=== PATIENT | female | born 1975 | race Caucasian/White ===

== ENCOUNTER 2022-04-18 16:45 | Observation (INO) | payer OTHER ==
[2022-04-18 17:34] LABS: Absolute Neutrophil Ct (ANC) 5.55 x10^3/uL (1.4-6.9); Basophil (Absolute #) 0.08 x10^3/uL (0-0.4); Eosinophil % 1.8 % (0.00-5.0); Eosinophil (Absolute #) 0.18 x10^3/uL (0-0.5); Hematocrit 38.7 % (35-47); Hemoglobin 12.5 g/dL (12.0-16.0); Lymphocytes % 34.6 % (24.0-44.0); Mean Cell Volume 90.6 fL (78-100); Mean Corpuscular Hemoglobin 29.3 pg (26-32); Mean Corpuscular Hgb Concent. 32.3 g/dL (32-36); Mean Platelet Volume 10.5 fL (7.5-11.0); Monocyte (Absolute #) 0.58 x10^3/uL (0.0-1.3); Monocytes % 5.9 % (0.0-12.0); Neutrophil % 56.5 % (36.0-66.0); Platelet Count 315 x10^3/uL (150-450); Red Blood Count 4.27 x10^6/uL (4.1-5.4); Red Cell Distribution Width 14.2 % (11.5-14.0); White Blood Count 9.8 x10^3/uL (4.0-10.5)
--- NOTE | 2022-04-18 17:44 | ERPHSYRPT ---
- History of Present Illness Time Seen by Provider: 04/18/22 16:59 Source: patient Exam Limitations: no limitations Patient Subjective Stated Complaint: [place]oke symptoms Triage Nursing Assessment: Patient ambulated back to ED and transferred self to bed. Patient A+O 3. Patient's skin pink, warm and dry. Patient complains of waking up at 0400 this am and around 0500 her right arm became flacid and she was unable to move it for 2 min. Patient states then she was fine. Later around 1200 she stated she was standing talking to someone when she started feeling weird and her right arm became flacid again and her speach was slurred that lasted 5 min. Patient states she has been fine since. Patient currently denies pain or discomfort. Physician History: 46 years old female with history of hypertension, hyperlipidemia, tobacco abuse presented in the ER with chief complaint of intermittent weakness right upper extremity. Patient reports she woke up around 4 AM today, was in usual state of health and around 5 PM she started to feel that she has weakness in right upper extremity, could not hold her cell phone and it was keep falling, lasted for few minutes and improved. This happened again around noon time in the right upper extremity lasting for few minutes and at that time she also had slurring of speech. She does not have any focal neurodeficit currently. Denies any chest pain palpitations or shortness of breath. No history of stroke/TIA before. Currently she is asymptomatic. Time of Onset/Last Time Seen Normal: 0400 Timing/Duration: today, improved Severity: moderate Deficits: no difficulties Baseline/Normal Cognition: alert oriented x 3 Current Cognition: alert oriented x 3 Baseline Gait: walks w/o assistance Associated Symptoms: weakness, slurred speech Allergies/Adverse Reactions: ibuprofen Allergy (Verified 04/18/22 17:00) Home Medications: Amitriptyline HCl 25 mg [Amitriptyline 25 mg Tablet] 1 tab PO HS 04/18/22 [History] Atorvastatin Calcium 1 tab PO HS 04/18/22 [History] Metformin HCl 500 mg [Glucophage 500 MG] 1 tab PO DAILY 04/18/22 [History] Omeprazole 1 tab PO DAILY 04/18/22 [History] Solifenacin Succinate 1 tab PO DAILY 04/18/22 [History] Hx Influenza Vaccination/Date Given: No Hx Pneumococcal Vaccination/Date Given: No Immunizations Up to Date: Yes Travel Risk - International Travel Have you traveled outside of the country in past 3 weeks: No - Coronavirus Screening Are you exhibiting any of the following symptoms?: No Close contact with a COVID-19 positive Pt in past 14-21 Days: No - Vaccine Status Have you recieved a Covid-19 vaccination: No - Review of Systems Constitutional: No Symptoms Eyes: No Symptoms Ears, Nose, & Throat: No Symptoms Respiratory: No Symptoms Cardiac: No Symptoms Abdominal/Gastrointestinal: No Symptoms Genitourinary Symptoms: No Symptoms Musculoskeletal: No Symptoms Skin: No Symptoms Neurological: No Symptoms Psychological: No Symptoms Endocrine: No Symptoms Hematologic/Lymphatic: No Symptoms Immunological/Allergic: No Symptoms - Past Medical History Pertinent Past Medical History: Yes Neurological History: Other ENT History: No Pertinent History Cardiac History: High Cholesterol, Hypertension Respiratory History: No Pertinent History Endocrine Medical History: No Pertinent History Musculoskeletal History: No Pertinent History GI Medical History: No Pertinent History History: No Pertinent History Psycho-Social History: No Pertinent History Female Reproductive Disorders: No Pertinent History Other Medical History: sleep apnea - Past Surgical History Past Surgical History: Yes Neuro Surgical History: No Pertinent History Cardiac: No Pertinent History Respiratory: No Pertinent History Gastrointestinal: Cholecystectomy Genitourinary: No Pertinent History Musculoskeletal: No Pertinent History Female Surgical History: No Pertinent History - Social History Smoking Status: Current every day smoker How long have you smoked: years Exposure to second hand smoke: No Drug Use: none Patient Lives Alone: No - Female History Hx Last Menstrual Period: currently Hx Now: (unkn) - Nursing Vital Signs Nursing Vital Signs: Initial Vital Signs Temperature 96.2 F 04/18/22 17:03 Pulse Rate 88 04/18/22 17:03 Respiratory Rate 18 04/18/22 17:03 Blood Pressure 176/86 04/18/22 17:03 O2 Sat by Pulse Oximetry 98 04/18/22 17:03 Pain Scale Pain Intensity 0 - Uday Coma Scale Best Eye Response ([place]): (4) open spontaneously Best Verbal Response (Uday): (5) oriented Best Motor Response (Uday): (6) obeys commands Uday Total: 15 - Physical Exam General Appearance: no apparent distress, alert Eye Exam: bilateral eye: normal inspection, PERRL, EOMI Ears, Nose, Throat Exam: normal ENT inspection, TMs normal, pharynx normal, moist mucous membranes Neck Exam: normal inspection, non-tender, supple, full range of motion Respiratory: normal breath sounds, lungs clear Cardiovascular: regular rate/rhythm, normal heart sounds Gastrointestinal: soft, normal bowel sounds, No tenderness Back Exam: normal inspection, normal range of motion Extremity Exam: normal inspection, normal range of motion Mental Status: alert, oriented x 3, 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 Exam: normal hearing, normal speech, PERRL Coordination/Gait: normal finger to nose, normal gait, normal cerebellar function Motor/Sensory: no motor deficit, no sensory deficit, no pronator drift, negative Babinski's sign DTR: bicep (R): 2+, bicep (L): 2+, knee (R): 2+, knee (L): 2+ Skin Exam: normal color SpO2 Interpretation: normal SpO2: 98 O2 Delivery: Room Air - Course EKG Interpreted by Me: RATE ([id number]), Sinus Rhythm, NORMAL AXIS, NORMAL INTERVALS, Non-specific ST Changes Ordered Tests: Active Orders 24 hr Category Date Time Status Educational Administrator STAT Care 04/18/22 17:12 Active EKG-ER Only STAT Care 04/18/22 17:11 Active IV Insertion STAT Care 04/18/22 17:11 Active NPO (ED) STAT Care 04/18/22 17:11 Active POCT Glucose Check STAT Care 04/18/22 17:11 Active Tele-Health Consult ROUTINE Cons 04/18/22 18:50 Active HEAD WITHOUT CONTRAST [CT] Stat Exams 04/18/22 17:11 Taken CBC W DIFF Stat Lab 04/18/22 17:19 Completed CMP Stat Lab 04/18/22 17:19 Completed CULTURE,URINE Stat Lab 04/18/22 17:19 Received MAG [MAGNESIUM] Stat Lab 04/18/22 17:19 Completed POCT GLUCOSE Stat Lab 04/18/22 17:17 Completed PROTIME WITH INR Stat Lab 04/18/22 17:19 Completed PTT Stat Lab 04/18/22 17:19 Completed TROPONIN Q3H Lab 04/18/22 17:15 Completed TROPONIN Q3H Lab 04/18/22 20:15 Ordered TROPONIN Q3H Lab 04/18/22 23:15 Ordered TROPONIN Q3H Lab 04/19/22 02:15 Ordered UA W/RFX CULTURE Stat Lab 04/18/22 17:19 Completed Transfer Order Routine Transfer 04/18/22 Ordered Medication Summary Discontinued Medications Generic Name Dose Route Start Last Admin Trade Name Vin PRN Reason Stop Dose Admin Aspirin 324 mg 04/18/22 19:02 Aspirin 81 Mg Tab.Chew PO 04/18/22 19:03 STAT ONE Lab/Rad Data: Laboratory Result Diagrams 04/18/22 17:19 04/18/22 17:19 Laboratory Results 04/18/22 04/18/22 04/18/22 Range/Units 17:19 17:19 17:19 WBC (4.0-10.5) x10^3/uL RBC (4.1-5.4) x10^6/uL Hgb (12.0-16.0) g/dL Hct (35-47) % MCV (78-100) fL MCH (26-32) pg MCHC (32-36) g/dL RDW (11.5-14.0) % Plt Count (150-450) x10^3/uL MPV (7.5-11.0) fL Gran % (36.0-66.0) % Immature Gran % (Auto) (0.00-0.4) % Nucleat RBC Rel Count (0.00-0.1) % Eos # (Auto) (0-0.5) x10^3/uL Immature Gran # (Auto) (0.00-0.03) x10^3u/L Absolute Lymphs (auto) (1.0-4.6) x10^3/uL Absolute Monos (auto) (0.0-1.3) x10^3/uL Absolute Nucleated RBC (0.00-0.01) x10^3u/L Lymphocytes % (24.0-44.0) % Monocytes % (0.0-12.0) % Eosinophils % (0.00-5.0) % Basophils % (0.0-0.4) % Absolute Granulocytes (1.4-6.9) x10^3/uL Basophils # (0-0.4) x10^3/uL PT 10.1 (9.4-12.5) SECONDS INR 0.95 (0.8-3.0) APTT 26.1 (25.1-36.5) SECONDS Sodium (137-145) mmol/L Potassium (3.5-5.1) mmol/L Chloride (98-107) mmol/L Carbon Dioxide (22-30) mmol/L Anion Gap (5-15) MEQ/L BUN (7-17) mg/dL Creatinine (0.52-1.04) mg/dL Estimated GFR ML/MIN Glucose (74-106) mg/dL POC Glucometer (74 to 106) mg/dL Calcium (8.4-10.2) mg/dL Magnesium 1.8 (1.6-2.3) mg/dL Total Bilirubin (0.2-1.3) mg/dL AST (14-36) U/L ALT (0-35) U/L Alkaline Phosphatase (38-126) U/L Troponin I (0.000-0.034) ng/mL Serum Total Protein (6.3-8.2) g/dL Albumin (3.5-5.0) g/dL Urinalys Dipstick Clnc MAIN LAB Urine Color PINK (YELLOW) Urine Appearance CLOUDY A (CLEAR) Urine pH 6.0 (5-6) Ur Specific [place] 1.025 (1.005-1.025) POC Urine Protein Conf TRACE A (Negative) Urine Ketones NEGATIVE (NEGATIVE) Urine Nitrite NEGATIVE (NEGATIVE) Urine Bilirubin NEGATIVE (NEGATIVE) Urine Urobilinogen 0.2 (0-1) mg/dL Urine Leukocytes TRACE A (NEGATIVE) Urine WBC (Auto) 16-25 A (0-5) /HPF Urine RBC (Auto) >101 A (0-2) /HPF U Epithel Cells (Auto) RARE (FEW) /HPF Urine Bacteria (Auto) RARE (NEGATIVE) /HPF Urine RBC LARGE A (0-5) [place]/ul Urine Mucus (Auto) SLIGHT A (NEGATIVE) /HPF Ur Culture Indicated? YES Urine Glucose NEGATIVE (NEGATIVE) mg/dL Influenza Type A Ag (NEGATIVE) Influenza Type B Ag (NEGATIVE) RSV (PCR) (Negative) SARS-CoV-2 (PCR) (NEGATIVE) 04/18/22 04/18/22 04/18/22 Range/Units 17:19 17:19 17:17 WBC 9.8 (4.0-10.5) x10^3/uL RBC 4.27 (4.1-5.4) x10^6/uL Hgb 12.5 (12.0-16.0) g/dL Hct 38.7 (35-47) % MCV 90.6 (78-100) fL MCH 29.3 (26-32) pg MCHC 32.3 (32-36) g/dL RDW 14.2 H (11.5-14.0) % Plt Count 315 (150-450) x10^3/uL MPV 10.5 (7.5-11.0) fL Gran % 56.5 (36.0-66.0) % Immature Gran % (Auto) 0.4 (0.00-0.4) % Nucleat RBC Rel Count 0.0 (0.00-0.1) % Eos # (Auto) 0.18 (0-0.5) x10^3/uL Immature Gran # (Auto) 0.04 H (0.00-0.03) x10^3u/L Absolute Lymphs (auto) 3.40 (1.0-4.6) x10^3/uL Absolute Monos (auto) 0.58 (0.0-1.3) x10^3/uL Absolute Nucleated RBC 0.00 (0.00-0.01) x10^3u/L Lymphocytes % 34.6 (24.0-44.0) % Monocytes % 5.9 (0.0-12.0) % Eosinophils % 1.8 (0.00-5.0) % Basophils % 0.8 (0.0-0.4) % Absolute Granulocytes 5.55 (1.4-6.9) x10^3/uL Basophils # 0.08 (0-0.4) x10^3/uL PT (9.4-12.5) SECONDS INR (0.8-3.0) APTT (25.1-36.5) SECONDS Sodium 136 L (137-145) mmol/L Potassium 3.5 (3.5-5.1) mmol/L Chloride 102 (98-107) mmol/L Carbon Dioxide 26 (22-30) mmol/L Anion Gap 11.0 (5-15) MEQ/L BUN 11 (7-17) mg/dL Creatinine 0.70 (0.52-1.04) mg/dL Estimated GFR > 60.0 ML/MIN Glucose 95 (74-106) mg/dL POC Glucometer 98 (74 to 106) mg/dL Calcium 8.9 (8.4-10.2) mg/dL Magnesium (1.6-2.3) mg/dL Total Bilirubin 0.40 (0.2-1.3) mg/dL AST 25 (14-36) U/L ALT 28 (0-35) U/L Alkaline Phosphatase 94 (38-126) U/L Troponin I (0.000-0.034) ng/mL Serum Total Protein 7.4 (6.3-8.2) g/dL Albumin 4.3 (3.5-5.0) g/dL Urinalys Dipstick Clnc Urine Color (YELLOW) Urine Appearance (CLEAR) Urine pH (5-6) Ur Specific [place] (1.005-1.025) POC Urine Protein Conf (Negative) Urine Ketones (NEGATIVE) Urine Nitrite (NEGATIVE) Urine Bilirubin (NEGATIVE) Urine Urobilinogen (0-1) mg/dL Urine Leukocytes (NEGATIVE) Urine WBC (Auto) (0-5) /HPF Urine RBC (Auto) (0-2) /HPF U Epithel Cells (Auto) (FEW) /HPF Urine Bacteria (Auto) (NEGATIVE) /HPF Urine RBC (0-5) Kay[place]/ul Urine Mucus (Auto) (NEGATIVE) /HPF Ur Culture Indicated? Urine Glucose (NEGATIVE) mg/dL Influenza Type A Ag (NEGATIVE) Influenza Type B Ag (NEGATIVE) RSV (PCR) (Negative) SARS-CoV-2 (PCR) (NEGATIVE) 04/18/22 04/18/22 Range/Units 17:15 17:15 WBC (4.0-10.5) x10^3/uL RBC (4.1-5.4) x10^6/uL Hgb (12.0-16.0) g/dL Hct (35-47) % MCV (78-100) fL MCH (26-32) pg MCHC (32-36) g/dL RDW (11.5-14.0) % Plt Count (150-450) x10^3/uL MPV (7.5-11.0) fL Gran % (36.0-66.0) % Immature Gran % (Auto) (0.00-0.4) % Nucleat RBC Rel Count (0.00-0.1) % Eos # (Auto) (0-0.5) x10^3/uL Immature Gran # (Auto) (0.00-0.03) x10^3u/L Absolute Lymphs (auto) (1.0-4.6) x10^3/uL Absolute Monos (auto) (0.0-1.3) x10^3/uL Absolute Nucleated RBC (0.00-0.01) x10^3u/L Lymphocytes % (24.0-44.0) % Monocytes % (0.0-12.0) % Eosinophils % (0.00-5.0) % Basophils % (0.0-0.4) % Absolute Granulocytes (1.4-6.9) x10^3/uL Basophils # (0-0.4) x10^3/uL PT (9.4-12.5) SECONDS INR (0.8-3.0) APTT (25.1-36.5) SECONDS Sodium (137-145) mmol/L Potassium (3.5-5.1) mmol/L Chloride (98-107) mmol/L Carbon Dioxide (22-30) mmol/L Anion Gap (5-15) MEQ/L BUN (7-17) mg/dL Creatinine (0.52-1.04) mg/dL Estimated GFR ML/MIN Glucose (74-106) mg/dL POC Glucometer (74 to 106) mg/dL Calcium (8.4-10.2) mg/dL Magnesium (1.6-2.3) mg/dL Total Bilirubin (0.2-1.3) mg/dL AST (14-36) U/L ALT (0-35) U/L Alkaline Phosphatase (38-126) U/L Troponin I < 0.012 (0.000-0.034) ng/mL Serum Total Protein (6.3-8.2) g/dL Albumin (3.5-5.0) g/dL Urinalys Dipstick Clnc Urine Color (YELLOW) Urine Appearance (CLEAR) Urine pH (5-6) Ur Specific [place] (1.005-1.025) POC Urine Protein Conf (Negative) Urine Ketones (NEGATIVE) Urine Nitrite (NEGATIVE) Urine Bilirubin (NEGATIVE) Urine Urobilinogen (0-1) mg/dL Urine Leukocytes (NEGATIVE) Urine WBC (Auto) (0-5) /HPF Urine RBC (Auto) (0-2) /HPF U Epithel Cells (Auto) (FEW) /HPF Urine Bacteria (Auto) (NEGATIVE) /HPF Urine RBC (0-5) Kayode/ul Urine Mucus (Auto) (NEGATIVE) /HPF Ur Culture Indicated? Urine Glucose (NEGATIVE) mg/dL Influenza Type A Ag NEGATIVE (NEGATIVE) Influenza Type B Ag NEGATIVE (NEGATIVE) RSV (PCR) NEGATIVE (Negative) SARS-CoV-2 (PCR) POSITIVE A (NEGATIVE) - Progress Progress: unchanged Progress Note: 04/18/22 18:52 Patient has nonfocal neuro exam throughout stay in the ER. Baseline work-up negative including CT head without contrast. Patient does have a positive COVID-19. Tele neuro evaluation is obtained and he recommended full dose aspirin, observation admission on telemetry with stroke work-up including MRI as her symptoms are suspicious for TIA. Plan discussed with patient and family understand and agree with it. Discussed with Dr. Reyes and patient is excepted for admission. Will see patient in: hospital (observation) Counseled pt/family regarding: lab results, diagnosis, rad results, smoking cessation - Departure Departure Disposition: Observation Clinical Impression: TIA (transient ischemic attack), COVID-19 virus detected Condition: Stable Critical Care Time: No Referrals: MARY MARTINI, PUBLICITY CONSULTANT [Primary Care Provider] - Follow up/PCP as directed
[2022-04-18 17:49] LABS: ALBUMIN 4.3 g/dL (3.5-5.0); ALKALINE PHOSPHATASE 94 U/L (38-126); BLOOD UREA NITROGEN 11 mg/dL (7-17); CHLORIDE 102 mmol/L (98-107); Calcium 8.9 mg/dL (8.4-10.2); Carbon Dioxide 26 mmol/L (22-30); EST GLOMERULAR FILTRATION RATE > 60.0 ML/MIN; Glucose 95 mg/dL (74-106); INR 0.95 (0.8-3.0); PROTIME 10.1 SECONDS (9.4-12.5); PTT 26.1 SECONDS (25.1-36.5); Potassium 3.5 mmol/L (3.5-5.1); SGOT/AST 25 U/L (14-36); SGPT/ALT 28 U/L (0-35); SODIUM 136 mmol/L (137-145); Total Protein 7.4 g/dL (6.3-8.2)
[2022-04-18 18:05] LABS: Bacteria RARE /HPF (NEGATIVE); Epithelial Cells RARE /HPF (FEW); Mucus SLIGHT /HPF (NEGATIVE)
[2022-04-18 18:10] LABS: INFLUENZA A NEGATIVE (NEGATIVE); INFLUENZA B NEGATIVE (NEGATIVE); RESPIRATORY SYNCTIAL VIRUS NEGATIVE (Negative)
[2022-04-18 18:10] LABS: Appearance CLOUDY (CLEAR); Bilirubin NEGATIVE (NEGATIVE); Glucose NEGATIVE (NEGATIVE); Ketones NEGATIVE (NEGATIVE); RBC LARGE Ery/ul (0-5); Specific Gravity 1.025 (1.005-1.025)
[2022-04-18 18:11] LABS: Dipstick done @ ? MAIN LAB; Nitrite NEGATIVE (NEGATIVE); Protein,Urine Dip TRACE (Negative); Urobilinogen 0.2 mg/dL (0-1)
[2022-04-18 18:15] LABS: RBC >101 /HPF (0-2); Urine Cultured Indicated? YES
[2022-04-18 18:15] LABS: SARS-CoV-2 Xpert Express POSITIVE (NEGATIVE)
[2022-04-18] MEDS ORDERED: BABY ASPIRIN 81 MG CHEW PO ONE (19:02)
[2022-04-18] MEDS ORDERED: DUONEB 0.5-3 MG/3 ml Neb IH PRN (20:41)
[2022-04-18] MEDS ORDERED: TYLENOL 325 MG PO PRN (20:41)
[2022-04-18] MEDS ORDERED: Zofran 4 MG/2 ML VIAL IV PRN (20:41)
[2022-04-18] MEDS ORDERED: AMITRIPTYLINE 25 MG TABLET PO SCH (22:00)
[2022-04-18] MEDS ORDERED: ZOCOR 20MG PO SCH (22:00)
[2022-04-19 02:53] LABS: Absolute Neutrophil Ct (ANC) 4.63 x10^3/uL (1.4-6.9); Basophil (Absolute #) 0.08 x10^3/uL (0-0.4); Eosinophil % 2.1 % (0.00-5.0); Eosinophil (Absolute #) 0.19 x10^3/uL (0-0.5); Hematocrit 36.3 % (35-47); Hemoglobin 11.7 g/dL (12.0-16.0); Lymphocyte (Absolute #) 3.66 x10^3/uL (1.0-4.6); Lymphocytes % 39.7 % (24.0-44.0); Mean Cell Volume 91.4 fL (78-100); Mean Corpuscular Hemoglobin 29.5 pg (26-32); Mean Corpuscular Hgb Concent. 32.2 g/dL (32-36); Mean Platelet Volume 10.3 fL (7.5-11.0); Monocyte (Absolute #) 0.63 x10^3/uL (0.0-1.3); Monocytes % 6.8 % (0.0-12.0); Neutrophil % 50.2 % (36.0-66.0); Platelet Count 280 x10^3/uL (150-450); Red Blood Count 3.97 x10^6/uL (4.1-5.4); Red Cell Distribution Width 14.1 % (11.5-14.0); White Blood Count 9.2 x10^3/uL (4.0-10.5)
[2022-04-19 03:16] LABS: BLOOD UREA NITROGEN 10 mg/dL (7-17); CHLORIDE 102 mmol/L (98-107); Calcium 8.4 mg/dL (8.4-10.2); Carbon Dioxide 27 mmol/L (22-30); Creatinine 1 0.67 mg/dL (0.52-1.04); EST GLOMERULAR FILTRATION RATE > 60.0 ML/MIN; Glucose 103 mg/dL (74-106); Potassium 3.2 mmol/L (3.5-5.1); SODIUM 135 mmol/L (137-145)
[2022-04-19] MEDS ORDERED: MEDICATION INTERVENTION MC SCH (07:30)
[2022-04-19] MEDS ORDERED: Glucophage 500 MG PO SCH (08:00)
--- NOTE | 2022-04-19 08:33 | XRAY ---
Indication: Right arm weakness and slurred speech. Multiple contiguous axial images obtained through the head without contrast. Comparison: None Normal appearing brain parenchyma, ventricles, and bony calvarium for patient's age. Paranasal sinuses and mastoid air cells are clear. Impression: Normal CT head without contrast exam.
[2022-04-19] MEDS ORDERED: NORCO 5/325 MG PO PRN (09:02)
[2022-04-19] MEDS ORDERED: Protonix 40MG Tablet PO SCH (10:00)
[2022-04-19] MEDS ORDERED: NON-FORMULARY ITEM (Solifenacin Succinate [Solifenacin Succinate] 5 MG Tablet) PO SCH (10:00)
[2022-04-19] MEDS ORDERED: PROTONIX 40 MG IV IV SCH (10:00)
[2022-04-19] MEDS ORDERED: NON-FORMULARY ITEM (Omeprazole [Omeprazole] 40 MG Capsule.Dr) PO SCH (10:00)
[2022-04-19] MEDS ORDERED: Ditropan XL 5 MG PO SCH (11:00)
--- NOTE | 2022-04-19 12:51 | XRAY ---
Indication: Right arm weakness and slurred speech. Stroke symptoms. Sagittal, coronal, and axial MRI brain performed using pre and post T1, T2, FLAIR, diffusion, and ADC sequences. 20 cc Dotarem contrast used. Comparison: None Ventriculosulcal pattern appears symmetric. Left posterior fossa demonstrates 1.6 x 2.0 cm paramedian arachnoid cyst. Otherwise no acute intracranial hemorrhage, abnormal extra-axial fluid collection, or mass effect. Diffusion images are negative for restricted signal. Following gadolinium, there is no abnormal enhancing intra or extra-axial mass. Fourth ventricle is midline without hydrocephalus. 7/8 cranial nerve complex bilaterally symmetric. Normal flow void signal within the major intracerebral circulation. Normal appearing craniocervical junction and sella turcica. Paranasal sinuses are clear. Impression: Small left posterior fossa arachnoid cyst. Remaining MRI brain with contrast exam is negative.
--- NOTE | 2022-04-19 16:33 | XRAY ---
Indication: Stroke symptoms. Two-dimensional sonogram and color Doppler imaging of the carotid arteries of the neck performed. Comparison: None Examination of the right carotid circulation demonstrate widely patent common carotid, carotid bulb, internal carotid, and external carotid arteries. PSV of the CCA is 79 cm/s. PSV of the ICA is 100 cm/s. ICA/CCA ratio is 1.3. Normal antegrade vertebral artery flow. Examination of the left carotid circulation also demonstrates widely patent common carotid, carotid bulb, internal carotid, and external carotid arteries. Internal carotid artery is tortuous. PSV of the CCA is 69 cm/s. PSV of the ICA is 59 cm/s. ICA/CCA ratio is 0.9. Normal antegrade vertebral artery flow. Impression: Widely patent carotid arteries of the neck. Velocity measurements and ratios are also negative for hemodynamically significant flow-limiting stenosis.
[2022-04-19 17:01] VITALS: BP 137/82; PULSE 68; O2SAT 95
--- NOTE | 2022-04-19 18:50 | PCM.SSS ---
History of Present Illness - Chief Complaint Chief Complaint: TIA History of Present Illness: is a 46 year old female patient Of Mary Lam NP who presented to ER with c/o 2 episodes the day of admission of transient RUE weakness where she could not hold her phone and the 2nd episode where she was unable to speak clearly.Symptoms resolved before ariving at ER. PMHx includes HTN, HLD,obesity,tabacco abuse. Teleneurology visit in ER advised Observation and MRI in AM.Patient has been symptom free. Medications & Allergies Home Medications: Home Medication List Amitriptyline HCl 25 mg [Amitriptyline 25 mg Tablet] 25 mg PO QHS 04/18/22 [History Confirmed 04/19/22] Atorvastatin Calcium 40 mg PO QHS 04/18/22 [History Confirmed 04/19/22] Metformin HCl 500 mg [Glucophage 500 MG] 500 mg PO DAILY 04/18/22 [History Confirmed 04/19/22] Omeprazole 40 mg PO DAILY 04/18/22 [History Confirmed 04/19/22] Solifenacin Succinate 5 mg PO DAILY 04/18/22 [History Confirmed 04/19/22] Allergies/Adverse Reactions: Allergies Allergy/AdvReac Type Severity Reaction Status Date / Time ibuprofen Allergy Verified 04/18/22 17:00 - Past Medical History Past Medical History: Yes Neurological History: Other ENT History: No Pertinent History Cardiac History: High Cholesterol, Hypertension Respiratory History: No Pertinent History Endocrine Medical History: No Pertinent History Musculoskelatal History: No Pertinent History GI Medical History: No Pertinent History History: No Pertinent History Pyscho-Social History: No Pertinent History Reproductive Disorders: No Pertinent History Comment: sleep apnea - Female History Hx Last Menstrual Period: currently Are you now?: (unkn) - Past Surgical History Past Surgical History: Yes Neuro Surgical History: No Pertinent History Cardiac History: No Pertinent History Respiratory Surgery: No Pertinent History GI Surgical History: Cholecystectomy Genitourinary Surgical Hx: No Pertinent History Musculskeletal Surgical Hx: No Pertinent History Female Surgical History: No Pertinent History - Social History Smoking Status: Current every day smoker How long have you smoked: 30 Exposure to second hand smoke: No Alcohol: Occasionally Drug Use: none - Physical Exam Vital Signs: Vital Signs - 24 hr Temp Pulse Resp BP Pulse Ox 04/19/22 16:00 97.9 F 68 18 137/82 95 04/19/22 12:00 97.9 F 76 16 131/69 98 04/19/22 08:00 97.9 F 67 16 143/77 97 04/19/22 06:00 16 04/19/22 04:00 98.7 F 75 16 98/62 94 L 04/19/22 02:00 16 04/19/22 00:00 17 04/18/22 23:32 98.2 F 81 17 116/58 94 L 04/18/22 22:07 81 18 95 04/18/22 22:00 17 04/18/22 21:30 97.5 F 81 16 140/77 97 04/18/22 20:41 16 04/18/22 19:04 98 General Appearance: no apparent distress Neurologic Exam: alert, oriented x 3, cooperative, 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 as tested, normal mood/affect, nml cerebellar function, nml station & gait, sensation nml, other (ormal speech and mentation), No motor deficits Eye Exam: PERRL/EOMI Ears, Nose, Throat Exam: normal ENT inspection Neck Exam: normal inspection Respiratory Exam: normal breath sounds Cardiovascular Exam: regular rate/rhythm Gastrointestinal/Abdomen Exam: soft (nontender) Pelvic Exam: not done Rectal Exam: not done Back Exam: normal inspection Extremity Exam: normal range of motion, other (trace ankle edema no calf tenderness) Skin Exam: normal color, warm, dry Results - Labs Lab/Micro Results: Lab Results-Last 24 Hours 04/18/22 04/19/22 04/19/22 Range/Units 21:10 02:50 02:50 WBC 9.2 (4.0-10.5) x10^3/uL RBC 3.97 L (4.1-5.4) x10^6/uL Hgb 11.7 L (12.0-16.0) g/dL Hct 36.3 (35-47) % MCV 91.4 (78-100) fL MCH 29.5 (26-32) pg MCHC 32.2 (32-36) g/dL RDW 14.1 H (11.5-14.0) % Plt Count 280 (150-450) x10^3/uL MPV 10.3 (7.5-11.0) fL Gran % 50.2 (36.0-66.0) % Immature Gran % (Auto) 0.3 (0.00-0.4) % Nucleat RBC Rel Count 0.0 (0.00-0.1) % Eos # (Auto) 0.19 (0-0.5) x10^3/uL Immature Gran # (Auto) 0.03 (0.00-0.03) x10^3u/L Absolute Lymphs (auto) 3.66 (1.0-4.6) x10^3/uL Absolute Monos (auto) 0.63 (0.0-1.3) x10^3/uL Absolute Nucleated RBC 0.00 (0.00-0.01) x10^3u/L Lymphocytes % 39.7 (24.0-44.0) % Monocytes % 6.8 (0.0-12.0) % Eosinophils % 2.1 (0.00-5.0) % Basophils % 0.9 (0.0-0.4) % Absolute Granulocytes 4.63 (1.4-6.9) x10^3/uL Basophils # 0.08 (0-0.4) x10^3/uL Sodium (137-145) mmol/L Potassium (3.5-5.1) mmol/L Chloride (98-107) mmol/L Carbon Dioxide (22-30) mmol/L Anion Gap (5-15) MEQ/L BUN (7-17) mg/dL Creatinine (0.52-1.04) mg/dL Estimated GFR ML/MIN Glucose (74-106) mg/dL Calcium (8.4-10.2) mg/dL Troponin I < 0.012 < 0.012 (0.000-0.034) ng/mL SARS-CoV-2 Ag (Rapid) (NEGATIVE) 04/19/22 04/19/22 Range/Units 02:50 10:00 WBC (4.0-10.5) x10^3/uL RBC (4.1-5.4) x10^6/uL Hgb (12.0-16.0) g/dL Hct (35-47) % MCV (78-100) fL MCH (26-32) pg MCHC (32-36) g/dL RDW (11.5-14.0) % Plt Count (150-450) x10^3/uL MPV (7.5-11.0) fL Gran % (36.0-66.0) % Immature Gran % (Auto) (0.00-0.4) % Nucleat RBC Rel Count (0.00-0.1) % Eos # (Auto) (0-0.5) x10^3/uL Immature Gran # (Auto) (0.00-0.03) x10^3u/L Absolute Lymphs (auto) (1.0-4.6) x10^3/uL Absolute Monos (auto) (0.0-1.3) x10^3/uL Absolute Nucleated RBC (0.00-0.01) x10^3u/L Lymphocytes % (24.0-44.0) % Monocytes % (0.0-12.0) % Eosinophils % (0.00-5.0) % Basophils % (0.0-0.4) % Absolute Granulocytes (1.4-6.9) x10^3/uL Basophils # (0-0.4) x10^3/uL Sodium 135 L (137-145) mmol/L Potassium 3.2 L (3.5-5.1) mmol/L Chloride 102 (98-107) mmol/L Carbon Dioxide 27 (22-30) mmol/L Anion Gap 9.0 (5-15) MEQ/L BUN 10 (7-17) mg/dL Creatinine 0.67 (0.52-1.04) mg/dL Estimated GFR > 60.0 ML/MIN Glucose 103 (74-106) mg/dL Calcium 8.4 (8.4-10.2) mg/dL Troponin I (0.000-0.034) ng/mL SARS-CoV-2 Ag (Rapid) NEGATIVE (NEGATIVE) Microbiology 04/18/22 17:19 Urine Culture - Preliminary Clean Catch Midstream NO GROWTH TO DATE - Radiology Impressions Radiology Exams & Impressions: Radiology Procedures Category Date Time Status CAROTID BILATERAL [US] Urgent Exams 04/19/22 15:30 Completed HEAD WITHOUT CONTRAST [CT] Stat Exams 04/18/22 17:11 Completed MRI BRAIN W & W/O CONTRAST [MRI] Routine Exams 04/19/22 08:33 Completed Assessment/Plan (1) TIA (transient ischemic attack) Status: Resolved Code(s): G45.9 - TRANSIENT CEREBRAL ISCHEMIC ATTACK, UNSPECIFIED (2) COVID-19 virus detected Status: Resolved Assessment & Plan: ER PCR covid positive but on the floor tested antigen negative and patient denies symptoms but had Covid 2 weeks Code(s): U07.1 - COVID-19 (3) HTN (hypertension) Status: Chronic Assessment & Plan: monitored Code(s): I10 - ESSENTIAL (PRIMARY) HYPERTENSION Hospital Summary - Hospital Course Hospital Course: Patient was admitted to [facility] for observation with resolved symptoms of RUE weakness and dysarthria. She had the benefit of Teleneuro visit in ER . MRI head and carotid doppler were unremarkable and patient was discharged amarilis to follow with Her PCP. Smoke cessation advised. - Vitals & Intake/Output Vital Signs: Vital Signs Temperature 97.9 F 04/19/22 16:00 Pulse Rate 68 04/19/22 16:00 Respiratory Rate 18 04/19/22 16:00 Blood Pressure 137/82 04/19/22 16:00 O2 Sat by Pulse Oximetry 95 04/19/22 16:00 Intake & Output: Intake & Output 04/17/22 04/18/22 04/19/22 04/20/22 11:59 11:59 11:59 11:59 Intake Total 240 580 Output Total 300 Balance -60 580 Weight 113.398 kg - Lab Result Diagrams: 04/19/22 02:50 04/19/22 02:50 Lab Results-Last 24 Hrs: Lab Results-Last 24 Hours 04/18/22 04/19/22 04/19/22 Range/Units 21:10 02:50 02:50 WBC 9.2 (4.0-10.5) x10^3/uL RBC 3.97 L (4.1-5.4) x10^6/uL Hgb 11.7 L (12.0-16.0) g/dL Hct 36.3 (35-47) % MCV 91.4 (78-100) fL MCH 29.5 (26-32) pg MCHC 32.2 (32-36) g/dL RDW 14.1 H (11.5-14.0) % Plt Count 280 (150-450) x10^3/uL MPV 10.3 (7.5-11.0) fL Gran % 50.2 (36.0-66.0) % Immature Gran % (Auto) 0.3 (0.00-0.4) % Nucleat RBC Rel Count 0.0 (0.00-0.1) % Eos # (Auto) 0.19 (0-0.5) x10^3/uL Immature Gran # (Auto) 0.03 (0.00-0.03) x10^3u/L Absolute Lymphs (auto) 3.66 (1.0-4.6) x10^3/uL Absolute Monos (auto) 0.63 (0.0-1.3) x10^3/uL Absolute Nucleated RBC 0.00 (0.00-0.01) x10^3u/L Lymphocytes % 39.7 (24.0-44.0) % Monocytes % 6.8 (0.0-12.0) % Eosinophils % 2.1 (0.00-5.0) % Basophils % 0.9 (0.0-0.4) % Absolute Granulocytes 4.63 (1.4-6.9) x10^3/uL Basophils # 0.08 (0-0.4) x10^3/uL Sodium (137-145) mmol/L Potassium (3.5-5.1) mmol/L Chloride (98-107) mmol/L Carbon Dioxide (22-30) mmol/L Anion Gap (5-15) MEQ/L BUN (7-17) mg/dL Creatinine (0.52-1.04) mg/dL Estimated GFR ML/MIN Glucose (74-106) mg/dL Calcium (8.4-10.2) mg/dL Troponin I < 0.012 < 0.012 (0.000-0.034) ng/mL SARS-CoV-2 Ag (Rapid) (NEGATIVE) 04/19/22 04/19/22 Range/Units 02:50 10:00 WBC (4.0-10.5) x10^3/uL RBC (4.1-5.4) x10^6/uL Hgb (12.0-16.0) g/dL Hct (35-47) % MCV (78-100) fL MCH (26-32) pg MCHC (32-36) g/dL RDW (11.5-14.0) % Plt Count (150-450) x10^3/uL MPV (7.5-11.0) fL Gran % (36.0-66.0) % Immature Gran % (Auto) (0.00-0.4) % Nucleat RBC Rel Count (0.00-0.1) % Eos # (Auto) (0-0.5) x10^3/uL Immature Gran # (Auto) (0.00-0.03) x10^3u/L Absolute Lymphs (auto) (1.0-4.6) x10^3/uL Absolute Monos (auto) (0.0-1.3) x10^3/uL Absolute Nucleated RBC (0.00-0.01) x10^3u/L Lymphocytes % (24.0-44.0) % Monocytes % (0.0-12.0) % Eosinophils % (0.00-5.0) % Basophils % (0.0-0.4) % Absolute Granulocytes (1.4-6.9) x10^3/uL Basophils # (0-0.4) x10^3/uL Sodium 135 L (137-145) mmol/L Potassium 3.2 L (3.5-5.1) mmol/L Chloride 102 (98-107) mmol/L Carbon Dioxide 27 (22-30) mmol/L Anion Gap 9.0 (5-15) MEQ/L BUN 10 (7-17) mg/dL Creatinine 0.67 (0.52-1.04) mg/dL Estimated GFR > 60.0 ML/MIN Glucose 103 (74-106) mg/dL Calcium 8.4 (8.4-10.2) mg/dL Troponin I (0.000-0.034) ng/mL SARS-CoV-2 Ag (Rapid) NEGATIVE (NEGATIVE) Micro Results-Entire Visit: Microbiology 04/18/22 17:19 Urine Culture - Preliminary Clean Catch Midstream NO GROWTH TO DATE - Radiology Exams Ordered Rad Exams-Entire Visit: Radiology Procedures Category Date Time Status CAROTID BILATERAL [US] Urgent Exams 04/19/22 15:30 Completed HEAD WITHOUT CONTRAST [CT] Stat Exams 04/18/22 17:11 Completed MRI BRAIN W & W/O CONTRAST [MRI] Routine Exams 04/19/22 08:33 Completed - Procedures and Test Procedures and Tests throughout Hospitalization: Therapy Orders & Screens 04/18/22 22:20 Respiratory Therapy Assessment DAILY Comment: Diagnosis: TIA 04/18/22 22:21 Smoking Cessation Education ONCE Comment: Diagnosis: TIA Smoking Status: Current every day smoker How long have you smoked: 30 Do you dip or chew tobacco: No - Discharge Disposition: Home, Self-Care Condition: Stable Prescriptions: Continue Amitriptyline HCl 25 mg [Amitriptyline 25 mg Tablet] 25 mg PO QHS Omeprazole 40 mg PO DAILY Atorvastatin Calcium 40 mg PO QHS Metformin HCl 500 mg [Glucophage 500 MG] 500 mg PO DAILY Solifenacin Succinate 5 mg PO DAILY Outpatient Orders: Holter Monitor Facility: 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
== END 2022-04-19 18:08 | disposition home or self-care (01) ==
LOC: ED 16:45 → MED SURG 20:36
PROVIDERS: ADMIT Family Medicine; ATTEND Family Medicine
DX: G45.9 Transient cerebral ischemic attack, unspecified (principal); U07.1 COVID-19; I10 Essential (primary) hypertension; E78.00 Pure hypercholesterolemia, unspecified; Z72.0 Tobacco use; Z79.899 Other long term (current) drug therapy; Z20.828 Contact with and (suspected) exposure to other viral communicable diseases
CPT/HCPCS: 0241U; 36000; 36415; 70450; 70553; 80048; 80053; 81015; 82947; 83735; 84484; 85025; 85610; 85730; 87086; 87811; 93005; 93041; 93880; 94760; 99284; 93268; A9270-GY; G0378

== ENCOUNTER 2023-04-20 18:03 | Emergency (ER) | payer OTHER ==
[2023-04-20 18:27] VITALS: TEMP 97.1
--- NOTE | 2023-04-20 18:27 | ERPHSYRPT ---
- History of Present Illness Source: patient, family Exam Limitations: no limitations Timing/Duration: day(s) Quality: aching Head Pain Location: temporal, parietal Severity of Pain-Max: mild (To moderate) Severity of Pain-Current: mild (To moderate) Recent Head Trauma: no recent headache/trauma, occasional headaches Modifying Factors: Improves With: other (Nothing specific) Associated Symptoms: neck pain (Right side paraspinous muscle. No left-sided pain and no central pain), No confusion, No dizziness, No fever/chills, No numbness in legs/feet, No sensitive to light, No vision changes, No visual disturbance Previous symptoms: no prior history, recently seen, recently treated Hx Influenza Vaccination/Date Given: No Hx Pneumococcal Vaccination/Date Given: No <VALENCIA ARNETT - Last Filed: 04/20/23 18:52> <CHASITY GUADARRAMA - Last Filed: 04/20/23 21:15> - History of Present Illness Time Seen by Provider: 04/20/23 18:26 Physician History: This is an obese 47-year-old white female patient of nurse practitioner Wolcott who presents with right-sided headache since April 09, 2023. On 04/14/2023, the patient was seen at an outpatient quick care clinic and given a prescription for muscle relaxant and prednisone to treat this right-sided headache and right- sided neck pain. Patient denies any acute trauma to the area. She has never had anything like this before. She does have a history of migraine headaches but the symptoms are different. Patient has a history of COPD, gastroesophageal reflux disease, migraine headaches, hyperlipidemia, hypertension and sleep apnea. The muscle relaxer and prednisone treatment has not helped her much. (VALENCIA ARNETT) Allergies/Adverse Reactions: ibuprofen Allergy (Verified 04/20/23 18:17) Home Medications: Amitriptyline HCl 25 mg [Amitriptyline 25 mg Tablet] 25 mg PO QHS 04/18/22 [History] Omeprazole 40 mg PO DAILY 04/18/22 [History] Solifenacin Succinate 5 mg PO DAILY 04/18/22 [History] Montelukast Sodium 10 mg [Singulair 10 MG] 10 mg PO DAILY 04/20/23 [History] Travel Risk - International Travel Have you traveled outside of the country in past 3 weeks: No - Coronavirus Screening Are you exhibiting any of the following symptoms?: Yes Symptoms: Headaches/Body Aches/Fatigue Close contact with a COVID-19 positive Pt in past 14-21 Days: No - Vaccine Status Have you recieved a Covid-19 vaccination: No <VALENCIA ARNETT - Last Filed: 04/20/23 18:52> - Review of Systems Constitutional: No Symptoms Eyes: No Symptoms Ears, Nose, & Throat: No Symptoms Respiratory: No Symptoms Cardiac: No Symptoms Abdominal/Gastrointestinal: No Symptoms Genitourinary Symptoms: No Symptoms Musculoskeletal: Arthralgias, Myalgias Skin: No Symptoms Neurological: Headache Psychological: No Symptoms Endocrine: No Symptoms Hematologic/Lymphatic: No Symptoms Immunological/Allergic: No Symptoms All Other Systems: Reviewed and Negative <VALENCIA ARNETT - Last Filed: 04/20/23 18:52> - Past Medical History Pertinent Past Medical History: Yes Neurological History: Other ENT History: No Pertinent History Cardiac History: High Cholesterol, Hypertension Respiratory History: No Pertinent History Endocrine Medical History: No Pertinent History Musculoskeletal History: No Pertinent History GI Medical History: No Pertinent History History: No Pertinent History Psycho-Social History: No Pertinent History Female Reproductive Disorders: No Pertinent History Other Medical History: sleep apnea - Past Surgical History Past Surgical History: Yes Neuro Surgical History: No Pertinent History Cardiac: No Pertinent History Respiratory: No Pertinent History Gastrointestinal: Cholecystectomy Genitourinary: No Pertinent History Musculoskeletal: No Pertinent History Female Surgical History: No Pertinent History - Social History Smoking Status: Current every day smoker How long have you smoked: 30 Exposure to second hand smoke: No Drug Use: none Patient Lives Alone: No <VALENCIA ARNETT - Last Filed: 04/20/23 18:52> - Physical Exam General Appearance: no apparent distress, alert, anxiety, obese Eye Exam: PERRL/EOMI, eyes nml inspection Ears, Nose, Throat Exam: normal ENT inspection, moist mucous membranes Neck Exam: normal inspection, non-tender, supple, full range of motion Respiratory Exam: airway intact, No chest tenderness, No respiratory distress Cardiovascular Exam: regular rate/rhythm, normal heart sounds, normal peripheral pulses Gastrointestinal/Abdominal Exam: No tenderness Back Exam: normal inspection, normal range of motion, No CVA tenderness, No vertebral tenderness Extremity Exam: normal inspection, normal range of motion, pelvis stable Mental Status Exam: alert, oriented x 3, 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 Exam: normal hearing, normal speech, PERRL Coordination/Gait Exam: normal finger to nose, normal gait, normal cerebellar function Motor/Sensory Exam: no motor deficit, no sensory deficit, no pronator drift Skin Exam: normal color, warm, dry Lymphatic Exam: No adenopathy SpO2 Interpretation: normal O2 Delivery: Room Air <VALENCIA ARNETT - Last Filed: 04/20/23 18:52> - Nursing Vital Signs Nursing Vital Signs: Initial Vital Signs Temperature 97.1 F 04/20/23 18:14 Pulse Rate 107 H 04/20/23 18:14 Respiratory Rate 17 04/20/23 18:14 Blood Pressure 117/72 04/20/23 18:14 O2 Sat by Pulse Oximetry 95 04/20/23 18:14 Pain Scale Pain Intensity 9 - Course Nursing assessment & vital signs reviewed: Yes <VALENCIA ARNETT - Last Filed: 04/20/23 18:52> Ordered Tests: Active Orders 24 hr Category Date Time Status HEAD WITHOUT CONTRAST [CT] Stat Exams 04/20/23 18:35 Taken CBC W DIFF Stat Lab 04/20/23 19:31 Completed CMP Stat Lab 04/20/23 19:31 Completed CULTURE,URINE Stat Lab 04/20/23 19:07 Received HCG QUALITATIVE, URINE Stat Lab 04/20/23 Completed Lactic Acid Stat Lab 04/20/23 20:12 Completed UA W/RFX UR CULTURE Stat Lab 04/20/23 19:07 Completed Medication Summary Discontinued Medications Generic Name Dose Route Start Last Admin Trade Name Vin PRN Reason Stop Dose Admin Hydromorphone HCl 1 mg 04/20/23 20:09 04/20/23 20:15 Hydromorphone 1 Mg/1ml Inj IV 04/20/23 20:10 Not Given STAT ONE Hydromorphone HCl 1 mg 04/20/23 20:13 04/20/23 20:18 Hydromorphone 1 Mg/1ml Inj IM 04/20/23 20:14 1 mg STAT ONE Administration Hydromorphone HCl Confirm 04/20/23 20:16 Hydromorphone 1 Mg/1ml Inj Administered 04/20/23 20:17 Dose 1 mg .ROUTE .STK-MED ONE Lab/Rad Data: Laboratory Result Diagrams 04/20/23 19:31 04/20/23 19:31 Laboratory Results 04/20/23 04/20/23 04/20/23 Range/Units Unknown 20:12 19:31 WBC (4.0-10.5) x10^3/uL RBC (4.1-5.4) x10^6/uL Hgb (12.0-16.0) g/dL Hct (35-47) % MCV (78-100) fL MCH (26-32) pg MCHC (32-36) g/dL RDW (11.5-14.0) % Plt Count (150-450) x10^3/uL MPV (7.5-11.0) fL Gran % (36.0-66.0) % Immature Gran % (Auto) (0.00-0.4) % Nucleat RBC Rel Count (0.00-0.1) % Eos # (Auto) (0-0.5) x10^3/uL Immature Gran # (Auto) (0.00-0.03) x10^3u/L Absolute Lymphs (auto) (1.0-4.6) x10^3/uL Absolute Monos (auto) (0.0-1.3) x10^3/uL Absolute Nucleated RBC (0.00-0.01) x10^3u/L Lymphocytes % (24.0-44.0) % Monocytes % (0.0-12.0) % Eosinophils % (0.00-5.0) % Basophils % (0.0-0.4) % Absolute Granulocytes (1.4-6.9) x10^3/uL Basophils # (0-0.4) x10^3/uL Sodium 134 L (137-145) mmol/L Potassium 3.3 L (3.5-5.1) mmol/L Chloride 98 (98-107) mmol/L Carbon Dioxide 24 (22-30) mmol/L Anion Gap 15.6 H (5-15) MEQ/L BUN 19 H (7-17) mg/dL Creatinine 0.84 (0.52-1.04) mg/dL Estimated GFR 86.2 ML/MIN Glucose 117 H (74-106) mg/dL Lactic Acid 1.1 (0.4-2.0) Calcium 9.8 (8.4-10.2) mg/dL Total Bilirubin 0.30 (0.2-1.3) mg/dL AST 21 (14-36) U/L ALT 30 (0-35) U/L Alkaline Phosphatase 101 (38-126) U/L Serum Total Protein 7.5 (6.3-8.2) g/dL Albumin 4.3 (3.5-5.0) g/dL Urine Color (Yellow) Urine Appearance (Clear) Urine pH (4.6-8.0) Ur Specific Hines (1.005-1.030) Urine Protein (Negative) Urine Glucose (UA) (Negative) mg/dL Urine Ketones (Negative) Urine Blood (Negative) Urine Nitrite (Negative) Urine Bilirubin (Negative) Urine Urobilinogen (0.2) mg/dL Ur Leukocyte Esterase (Negative) U Hyaline Cast (Auto) (0-2) /LPF Urine Microscopic RBC (0-5) /HPF Urine Microscopic WBC (0-5) /HPF Ur Epithelial Cells (None Seen) /HPF Urine Bacteria (None Seen) /HPF Urine Culture Reflexed (NO) Urine HCG, Qual NEGATIVE (NEGATIVE) Influenza Type A Ag (NEGATIVE) Influenza Type B Ag (NEGATIVE) RSV (PCR) (NEGATIVE) SARS-CoV-2 (PCR) (NEGATIVE) 04/20/23 04/20/23 04/20/23 Range/Units 19:31 19:10 19:07 WBC 20.7 H (4.0-10.5) x10^3/uL RBC 4.68 (4.1-5.4) x10^6/uL Hgb 13.4 (12.0-16.0) g/dL Hct 42.0 (35-47) % MCV 89.7 (78-100) fL MCH 28.6 (26-32) pg MCHC 31.9 L (32-36) g/dL RDW 14.7 H (11.5-14.0) % Plt Count 412 (150-450) x10^3/uL MPV 10.4 (7.5-11.0) fL Gran % 65.2 (36.0-66.0) % Immature Gran % (Auto) 1.0 H (0.00-0.4) % Nucleat RBC Rel Count 0.0 (0.00-0.1) % Eos # (Auto) 0.29 (0-0.5) x10^3/uL Immature Gran # (Auto) 0.21 H (0.00-0.03) x10^3u/L Absolute Lymphs (auto) 5.41 H (1.0-4.6) x10^3/uL Absolute Monos (auto) 1.13 (0.0-1.3) x10^3/uL Absolute Nucleated RBC 0.00 (0.00-0.01) x10^3u/L Lymphocytes % 26.1 (24.0-44.0) % Monocytes % 5.5 (0.0-12.0) % Eosinophils % 1.4 (0.00-5.0) % Basophils % 0.8 (0.0-0.4) % Absolute Granulocytes 13.50 H (1.4-6.9) x10^3/uL Basophils # 0.16 (0-0.4) x10^3/uL Sodium (137-145) mmol/L Potassium (3.5-5.1) mmol/L Chloride (98-107) mmol/L Carbon Dioxide (22-30) mmol/L Anion Gap (5-15) MEQ/L BUN (7-17) mg/dL Creatinine (0.52-1.04) mg/dL Estimated GFR ML/MIN Glucose (74-106) mg/dL Lactic Acid (0.4-2.0) Calcium (8.4-10.2) mg/dL Total Bilirubin (0.2-1.3) mg/dL AST (14-36) U/L ALT (0-35) U/L Alkaline Phosphatase (38-126) U/L Serum Total Protein (6.3-8.2) g/dL Albumin (3.5-5.0) g/dL Urine Color Yellow (Yellow) Urine Appearance Cloudy A (Clear) Urine pH 5.5 (4.6-8.0) Ur Specific Hines 1.025 (1.005-1.030) Urine Protein 30 (Negative) Urine Glucose (UA) Negative (Negative) mg/dL Urine Ketones Trace A (Negative) Urine Blood Large A (Negative) Urine Nitrite Positive A (Negative) Urine Bilirubin Negative (Negative) Urine Urobilinogen 0.2 (0.2) mg/dL Ur Leukocyte Esterase Trace A (Negative) U Hyaline Cast (Auto) 0-2 (0-2) /LPF Urine Microscopic RBC 3-5 (0-5) /HPF Urine Microscopic WBC 3-5 (0-5) /HPF Ur Epithelial Cells Few (None Seen) /HPF Urine Bacteria Many A (None Seen) /HPF Urine Culture Reflexed YES (NO) Urine HCG, Qual (NEGATIVE) Influenza Type A Ag NEGATIVE (NEGATIVE) Influenza Type B Ag NEGATIVE (NEGATIVE) RSV (PCR) NEGATIVE (NEGATIVE) SARS-CoV-2 (PCR) NEGATIVE (NEGATIVE) - Progress Progress: re-examined Air Movement: good Blood Culture(s) Obtained: Yes <VALENCIA ARNETT - Last Filed: 04/20/23 18:52> - Progress Progress: unchanged Antibiotics given: No <CHASITY GUADARRAMA - Last Filed: 04/20/23 21:15> - Progress Progress Note: 04/20/23 18:56 This patient's medical issue is 1 of low to moderate complexity. The level complex in the work-up performed is based on review of the patient's past medical history, review of the patient's medication list, review of the patient's drug allergy list, history present illness and physical findings on examination. The work-up includes CT scan of the head as well as viral swabs. Patient care is transferred to Dr. Guadarrama at shift change. He was told of the tests results that are pending and he will follow-up on them and make final disposition. (VALENCIA ARNETT) Medical Desision Making - Independent Historian Additional History obtained from: Spouse - Diagnostic Testing Diagnostic test were ordered, analyzed, and reviewed by me: No <VALENCIA ARNETT - Last Filed: 04/20/23 18:52> - Independent Historian Additional History obtained from: Spouse - Diagnostic Testing Radiological Interpretation: Reviewed by me - Risk of complications Low Risk: Low risk of morbidity from additional dx testing or treatment <CHASITY GUADARRAMA - Last Filed: 04/20/23 21:15> - Departure Departure Disposition: Home Critical Care Time: No <VALENCIA ARNETT - Last Filed: 04/20/23 18:52> - Departure Departure Disposition: Home Critical Care Time: No <CHASITY GUADARRAMA - Last Filed: 04/20/23 21:15> - Departure Clinical Impression: Headache, Body aches, Occipital neuralgia of right side Condition: Stable Referrals: MARY MARTINI, SULPHATE TESTER [Primary Care Provider] - Follow up/PCP as directed Prescriptions: Hydrocodone/Acetaminophen [Hydrocodone-Acetamin 5-325 mg] 1 tab PO Q6HPRN PRN 3 Days #12 tablet MDD 4 PRN Reason: Pain Gabapentin [Neurontin ] 300 mg PO TID 10 Days #30 cap
[2023-04-20 19:19] LABS: HCG URINE TEST NEGATIVE (NEGATIVE)
[2023-04-20 19:51] LABS: BASOPHIL % 0.8 % (0.0-0.4); Basophil (Absolute #) 0.16 x10^3/uL (0-0.4); Eosinophil % 1.4 % (0.00-5.0); Eosinophil (Absolute #) 0.29 x10^3/uL (0-0.5); Hemoglobin 13.4 g/dL (12.0-16.0); IMMATURE GRAN # 0.21 x10^3u/L (0.00-0.03); Lymphocyte (Absolute #) 5.41 x10^3/uL (1.0-4.6); Lymphocytes % 26.1 % (24.0-44.0); Mean Cell Volume 89.7 fL (78-100); Mean Corpuscular Hemoglobin 28.6 pg (26-32); Mean Corpuscular Hgb Concent. 31.9 g/dL (32-36); Mean Platelet Volume 10.4 fL (7.5-11.0); Monocyte (Absolute #) 1.13 x10^3/uL (0.0-1.3); Monocytes % 5.5 % (0.0-12.0); Neutrophil % 65.2 % (36.0-66.0); Platelet Count 412 x10^3/uL (150-450); Red Blood Count 4.68 x10^6/uL (4.1-5.4); Red Cell Distribution Width 14.7 % (11.5-14.0); White Blood Count 20.7 x10^3/uL (4.0-10.5)
[2023-04-20 19:53] LABS: INFLUENZA A NEGATIVE (NEGATIVE); INFLUENZA B NEGATIVE (NEGATIVE); RESPIRATORY SYNCTIAL VIRUS NEGATIVE (NEGATIVE); SARS-CoV-2 Xpert Express NEGATIVE (NEGATIVE)
[2023-04-20 20:03] LABS: Appearance Cloudy (Clear); Bacteria Many /HPF (None Seen); Bilirubin Negative (Negative); Blood Large (Negative); Glucose, Urine Negative (Negative); Ketones Trace (Negative); Leukocyte Esterase Trace (Negative); Nitrite Positive (Negative); Ph 5.5 (4.6-8.0); Protein,Urine Dip 30 (Negative); Specific Gravity 1.025 (1.005-1.030); Urobilinogen 0.2 mg/dL (0.2)
[2023-04-20 20:04] LABS: ADD URINE CULTURE? YES (NO); Epithelial Cells Few /HPF (None Seen); Hyaline Casts 0-2 /LPF (0-2)
[2023-04-20 20:05] LABS: ALBUMIN 4.3 g/dL (3.5-5.0); ANION GAP 15.6 MEQ/L (5-15); BILIRUBIN,TOTAL 0.3 mg/dL (0.2-1.3); Calcium 9.8 mg/dL (8.4-10.2); Creatinine 1 0.84 mg/dL (0.52-1.04); EST GLOMERULAR FILTRATION RATE 86.2 ML/MIN; Potassium 3.3 mmol/L (3.5-5.1); Total Protein 7.5 g/dL (6.3-8.2)
[2023-04-20] MEDS ORDERED: Hydromorphone 1 mg/ml Injection IV ONE (20:09)
[2023-04-20] MEDS ORDERED: Hydromorphone 1 mg/ml Injection IM ONE (20:13)
[2023-04-20] MEDS ORDERED: Hydromorphone 1 mg/ml Injection ONE (20:16)
[2023-04-20] MEDS ORDERED: NORCO 5/325 MG ONE ×2 (21:11→21:20)
[2023-04-20 21:13] VITALS: BP 112/70; PULSE 83; RESP 18; O2SAT 94
[2023-04-20] MEDS ORDERED: NEURONTIN PO STA (21:17)
[2023-04-20] MEDS ORDERED: NORCO 5/325 MG PO ONE (21:18)
[2023-04-20] MEDS ORDERED: Neurontin PO SCH (22:00)
[2023-04-21 00:03] LABS: Slide Review 1 YES
--- NOTE | 2023-04-21 08:29 | XRAY ---
Indication: Right-sided headache 10 days. No known injury. Multiple contiguous axial images obtained through the head without contrast. Comparison: April 18, 2022 Stable MRI proven small left posterior fossa arachnoid cyst. No acute intracranial hemorrhage, abnormal extra-axial fluid collection, or mass effect. Fourth ventricle is midline without hydrocephalus. Vargas-white matter differentiation preserved. Paranasal sinuses and mastoid air cells are clear. Impression: Stable left posterior fossa arachnoid cyst. Remaining CT head without contrast exam is again normal.
== END 2023-04-20 21:54 | disposition home or self-care (01) ==
LOC: ED 18:03
DX: R51.9 Headache, unspecified (principal); M79.10 Myalgia, unspecified site; M54.81 Occipital neuralgia; M54.2 Cervicalgia; E78.5 Hyperlipidemia, unspecified; I10 Essential (primary) hypertension; Z79.891 Long term (current) use of opiate analgesic; Z79.899 Other long term (current) drug therapy; Z28.310 Unvaccinated for COVID-19; Z72.0 Tobacco use
CPT/HCPCS: 0241U; 36415; 70450; 80053; 81001; 81025; 83605; 85025; 87077; 87086; 87186; 96372; 99284; J1170; A9270-GY